=== PATIENT | female | born 1950 | race Caucasian/White ===

== ENCOUNTER 2018-01-05 06:05 | Inpatient (IN) | payer MEDICARE, OTHER ==
[2018-01-05 07:15] LABS: ADD MAN DIFF? NO
[2018-01-05 07:19] LABS: BASOPHIL # 0.1 10^3/ul (0.0-0.1); BASOPHILS % 0.9 % (0.0-2.0); EOSINOPHILS # 0.1 10^3/ul (0.0-0.5); EOSINOPHILS % 2.2 % (0.0-7.0); HEMATOCRIT 38.2 % (37.0-47.0); HEMOGLOBIN 12.6 g/dl (12.0-16.0); LYMPHOCYTES # 1.3 10^3/ul (0.8-2.9); LYMPHOCYTES % 23.2 % (15.0-51.0); MEAN PLATELET VOLUME 10.9 fl (7.4-10.4); MONOCYTE # 0.5 10^3/ul (0.3-0.9); MONOCYTES % 9.1 % (0.0-11.0); NEUTROPHIL # 3.6 10^3/ul (1.6-7.5); NEUTROPHILS % 64.4 % (39.0-77.0); PLATELET COUNT 277 10^3/UL (140-415); RED CELL DISTRIBUTION WIDTH 12.5 % (11.5-14.5)
[2018-01-05 07:19] LABS: WHITE BLOOD COUNT 5.5 10^3/ul (4.8-10.8)
[2018-01-05 07:25] LABS: INR 1.08; PROTIME 14.1 Sec (11.9-14.9); PT RATIO 1.1
[2018-01-05 07:26] LABS: PARTIAL THROMBOPLASTIN TIME 29.4 Sec (25.0-35.0)
[2018-01-05 07:31] LABS: ALANINE AMINOTRANSFERASE 29 IU/L (13-69); ALBUMIN 4.1 g/dl (3.3-4.9); ALBUMIN/GLOBULIN RATIO 1.17; ALKALINE PHOSPHATASE 107 IU/L (42-121); ANION GAP 9 (8-16); ASPARTATE AMINO TRANSFERASE 24 IU/L (15-46); BILIRUBIN,INDIRECT 0.6 mg/dl (0-1.1); BILIRUBIN,TOTAL 0.6 mg/dl (0.2-1.3); CARBON DIOXIDE 27 mmol/L (21-31); CHLORIDE 108 mmol/L (97-110); GLUCOSE 183 mg/dl (70-220); TOTAL PROTEIN 7.6 g/dl (6.1-8.1)
[2018-01-05 07:34] LABS: BLOOD UREA NITROGEN 14 mg/dl (7-20); CALCIUM 9.2 mg/dl (8.4-10.2); CREATININE 0.58 mg/dl (0.44-1.00); POTASSIUM 4.6 mmol/L (3.5-5.1); SODIUM 139 mmol/L (135-144)
[2018-01-05] MEDS ORDERED: LIDOCAINE 1% (MDV) 20 ML INJ (07:34)
[2018-01-05] MEDS ORDERED: FENTAnyl 50 MCG/ML VIAL (07:34)
[2018-01-05] MEDS ORDERED: IODIXANOL LOCM 100 ML BTL (07:34)
[2018-01-05] MEDS ORDERED: HEPARIN 1000 UNITS/ML 10 ML INJ (07:34)
[2018-01-05] MEDS ORDERED: VERAPAMIL 5 MG INJ (07:35)
[2018-01-05] MEDS ORDERED: NITROGLYCERIN (IC) 100 MCG/ML INJ (07:35)
[2018-01-05] MEDS ORDERED: MIDAZOLAM 1 MG/ML 2 ML INJ (07:35)
[2018-01-05] MEDS: METOPROLOL (XL) 25 MG TAB PO (09:00)
[2018-01-05] MEDS: ISOSORBIDE MONONITRATE(SR)30 MG TAB PO (09:00)
[2018-01-05] MEDS: ASPIRIN 81 MG TAB NGT (11:00)
[2018-01-05] MEDS: SOD CHLORIDE 0.9% 1,000 ML IV (11:39)
[2018-01-05] MEDS: PANTOPRAZOLE (EC) 40 MG TAB PO (16:47)
[2018-01-05] MEDS: ATORVASTATIN 80 MG TAB PO (21:26)
[2018-01-05] MEDS: CEFAZOLIN 2 GM/50 ML (PMX) 50 ML IVPB (21:53)
[2018-01-06] MEDS: PANTOPRAZOLE (EC) 40 MG TAB PO (06:00)
[2018-01-06] MEDS: METOPROLOL (XL) 25 MG TAB PO (09:29)
[2018-01-06] MEDS: ISOSORBIDE MONONITRATE(SR)30 MG TAB PO (09:30)
[2018-01-06] MEDS: ASPIRIN 81 MG TAB NGT (09:30)
[2018-01-06 09:33] LABS: ADD MAN DIFF? NO
[2018-01-06 09:44] LABS: BASOPHILS % 0.6 % (0.0-2.0); EOSINOPHILS # 0.1 10^3/ul (0.0-0.5); EOSINOPHILS % 1.5 % (0.0-7.0); HEMATOCRIT 34.9 % (37.0-47.0); HEMOGLOBIN 11.4 g/dl (12.0-16.0); LYMPHOCYTES # 1.1 10^3/ul (0.8-2.9); LYMPHOCYTES % 24.1 % (15.0-51.0); MEAN CORPUSCULAR HEMOGLOBIN 30.2 pg (29.0-33.0); MEAN CORPUSCULAR HGB CONC 32.7 g/dl (32.0-37.0); MEAN CORPUSCULAR VOLUME 92.3 fl (82.0-101.0); MONOCYTE # 0.4 10^3/ul (0.3-0.9); MONOCYTES % 8.5 % (0.0-11.0); NEUTROPHIL # 3.1 10^3/ul (1.6-7.5); NEUTROPHILS % 65.1 % (39.0-77.0); PLATELET COUNT 247 10^3/UL (140-415); RED BLOOD COUNT 3.78 10^6/ul (4.20-5.40); RED CELL DISTRIBUTION WIDTH 12.5 % (11.5-14.5)
[2018-01-06 09:44] LABS: WHITE BLOOD COUNT 4.7 10^3/ul (4.8-10.8)
[2018-01-06 10:08] LABS: ANION GAP 9 (8-16); BLOOD UREA NITROGEN 12 mg/dl (7-20); CALCIUM 8.8 mg/dl (8.4-10.2); CARBON DIOXIDE 27 mmol/L (21-31); CHLORIDE 108 mmol/L (97-110); CREATININE 0.67 mg/dl (0.44-1.00); GLUCOSE 162 mg/dl (70-220); PHOSPHORUS 3.7 mg/dl (2.5-4.9); POTASSIUM 4.2 mmol/L (3.5-5.1); SODIUM 140 mmol/L (135-144)
[2018-01-06] MEDS: ATORVASTATIN 80 MG TAB PO (20:21)
[2018-01-07] MEDS: PANTOPRAZOLE (EC) 40 MG TAB PO (06:06)
[2018-01-07] MEDS ORDERED: POTASSIUM CHLORIDE 20 MEQ/SW 50 ML IVPB (07:00)
[2018-01-07] MEDS ORDERED: NITROGLYCERIN 50 MG/D5W 250 ML BTL (07:00)
[2018-01-07] MEDS ORDERED: DOPamine-D5W 1.6 MG/ML 250 ML (07:00)
[2018-01-07] MEDS: ASPIRIN 81 MG TAB PO (08:23)
[2018-01-07] MEDS: ISOSORBIDE MONONITRATE(SR)30 MG TAB PO (08:23)
[2018-01-07] MEDS: METOPROLOL (XL) 25 MG TAB PO (08:24)
[2018-01-07] MEDS ORDERED: THROMBIN 5000 UNIT VIAL (11:06)
[2018-01-07] MEDS ORDERED: GELATIN SIZE 100 SPONGE (11:06)
[2018-01-07] MEDS ORDERED: HEPARIN 1000 UNITS/ML 10 ML INJ ×4 (11:06→15:15)
[2018-01-07] MEDS ORDERED: MIDAZOLAM 5 ML ×2 (12:43→14:49)
[2018-01-07] MEDS ORDERED: PHENYLephrine (100 MCG/ML) 5ML SYG ×2 (12:48→16:06)
[2018-01-07] MEDS ORDERED: LIDOCAINE 100 MG SYRINGE (12:54)
[2018-01-07] MEDS ORDERED: MAGNESIUM SULFATE (MG) 50% 10 ML INJ (12:54)
[2018-01-07] MEDS ORDERED: POTASSIUM CHLORIDE 40 MEQ INJ (12:54)
[2018-01-07] MEDS ORDERED: ALBUMIN HUMAN 25% 100 ML (12:55)
[2018-01-07] MEDS ORDERED: PHENYLephrine 10 MG INJ (12:55)
[2018-01-07] MEDS ORDERED: MANNITOL 20% 250 ML IV (12:55)
[2018-01-07] MEDS ORDERED: NA BICARBONATE 8.4% 50 ML SYG (12:55)
[2018-01-07] MEDS ORDERED: CA CHLORIDE 10% 10 ML SYRINGE (12:56)
[2018-01-07] MEDS: INSULIN HUMAN REGULAR 100 UNIT in SOD CHLORIDE 0.9% 99 ML IVPB (13:00)
[2018-01-07] MEDS: MILRINONE LACTATE 2 MG in SOD CHLORIDE 0.9% 50 ML IV (13:00)
[2018-01-07] MEDS: PHENYLephrine 20MG IN 250 ML 250 ML IV (13:00)
[2018-01-07] MEDS ORDERED: TRANEXAMIC ACID 1,000 MG/10 ML VIAL (13:00)
[2018-01-07] MEDS: NORepinephrine 8MG/250 ML (PMX 250 ML IV (13:00)
[2018-01-07] MEDS: HEPARIN (10000 UNITS/ML) 10,000 UNIT, MILRINONE LACTATE 10 MG in SOD CHLORIDE 0.9% 1,00... SC (13:00)
[2018-01-07] MEDS ORDERED: CEFAZOLIN 1 GM INJ ×2 (13:39→16:06)
[2018-01-07] MEDS ORDERED: FUROSEMIDE 20 MG INJ (14:12)
[2018-01-07] MEDS: HEPARIN 1000 UNITS/ML 10 ML INJ (14:43)
[2018-01-07] MEDS: PAPAVERINE 60 MG INJ (14:43)
[2018-01-07] MEDS: VANCOMYCIN 1 GM INJ (14:44)
[2018-01-07] MEDS ORDERED: ALBUMIN HUMAN 5% 250 ML (15:50)
[2018-01-07] MEDS ORDERED: PROTAMINE 250 MG INJ ×2 (16:06→17:03)
[2018-01-07] MEDS: ASPIRIN 600 MG SUPP PR (17:00)
[2018-01-07] MEDS ORDERED: ROCURONIUM 50 MG INJ (17:01)
[2018-01-07] MEDS ORDERED: LIDOCAINE 2% (SDV) 5 ML INJ (17:01)
[2018-01-07] MEDS ORDERED: ETOMIDATE 20 MG INJ (17:01)
[2018-01-07] MEDS ORDERED: MAGNESIUM SULFATE 1 GM/D5W 100 ML IVPB (17:30)
[2018-01-07] MEDS ORDERED: ACETAMINOPHEN 325 MG TAB PO (17:30)
[2018-01-07] MEDS: CEFAZOLIN 1 GM/50 ML (PMX) 50 ML IVPB (17:30)
[2018-01-07] MEDS ORDERED: HYDROmorphONE 0.5 MG/0.5 ML SYG IV (17:30)
[2018-01-07] MEDS ORDERED: KETOROLAC 15 MG INJ IV (17:30)
[2018-01-07] MEDS ORDERED: NITROGLYCERIN 50 MG/D5W (PMX) 250 ML IV ×2 (17:30→18:00)
[2018-01-07] MEDS ORDERED: DEXTROSE 50% 50 ML SYRINGE IV ×2 (17:30)
[2018-01-07] MEDS: EPINEPHrine 4 MG in DEXTROSE 5% 246 ML IV (17:46)
[2018-01-07] MEDS: ACCU-CHEK XX ×7 (17:47→23:30)
[2018-01-07] MEDS: DOPamine-D5W 1.6 MG/ML 250 ML IV (17:57)
[2018-01-07] MEDS ORDERED: DOPamine-D5W 1.6 MG/ML 250 ML IV (18:00)
[2018-01-07 18:23] LABS: ADD MAN DIFF? NO
[2018-01-07 18:24] LABS: WHITE BLOOD COUNT 13.3 10^3/ul (4.8-10.8)
[2018-01-07 18:24] LABS: BASOPHILS % 0.2 % (0.0-2.0); EOSINOPHILS # 0.1 10^3/ul (0.0-0.5); EOSINOPHILS % 0.9 % (0.0-7.0); HEMOGLOBIN 10.7 g/dl (12.0-16.0); LYMPHOCYTES # 1.7 10^3/ul (0.8-2.9); LYMPHOCYTES % 12.8 % (15.0-51.0); MEAN CORPUSCULAR HEMOGLOBIN 30.1 pg (29.0-33.0); MEAN CORPUSCULAR HGB CONC 33.4 g/dl (32.0-37.0); MEAN CORPUSCULAR VOLUME 90.1 fl (82.0-101.0); MEAN PLATELET VOLUME 10.5 fl (7.4-10.4); MONOCYTE # 0.5 10^3/ul (0.3-0.9); MONOCYTES % 3.5 % (0.0-11.0); NEUTROPHILS % 82.1 % (39.0-77.0); PLATELET COUNT 167 10^3/UL (140-415); RED BLOOD COUNT 3.55 10^6/ul (4.20-5.40); RED CELL DISTRIBUTION WIDTH 12.4 % (11.5-14.5)
[2018-01-07 18:32] LABS: AADO2 Arterial 310.8 mmHg (7.0-24.0); Arterial Base Excess 0.9 mmol/L (-3.0-3); Arterial COHb 0.3 % (0.0-3.0); Arterial Fraction of Oxyhgb 97.4 % (93.0-99.0); Arterial HCO3 27.1 mmol/L (22.0-26.0); Arterial MetHb 0.3 % (0.0-1.5); Arterial Total Hemglobin 12.1 g/dl (12.0-18.0); Arterial pCO2 50.2 mmhg (35-45); MODE VENT - AC; Site A-Line
[2018-01-07 18:43] LABS: ANION GAP 12 (8-16); BLOOD UREA NITROGEN 9 mg/dl (7-20); CALCIUM 8.4 mg/dl (8.4-10.2); CARBON DIOXIDE 29 mmol/L (21-31); CHLORIDE 105 mmol/L (97-110); CREATININE 0.57 mg/dl (0.44-1.00); GLUCOSE 136 mg/dl (70-220); MAGNESIUM 2.9 mg/dl (1.7-2.5); POTASSIUM 3.3 mmol/L (3.5-5.1); SODIUM 143 mmol/L (135-144)
[2018-01-07 19:08] LABS: PROTIME 20.3 Sec (11.9-14.9); PT RATIO 1.6
[2018-01-07] MEDS: POTASSIUM CHLORIDE 50 ML IVPB ×3 (19:12→21:45)
[2018-01-07 19:24] LABS: PARTIAL THROMBOPLASTIN TIME 31.7 Sec (25.0-35.0)
[2018-01-07] MEDS: POTASSIUM CHLORIDE 40 MEQ, CALCIUM CHLORIDE 10% 1 GM in DEXTROSE 5%-0.225% NACL 1,000 ML IV (19:28)
[2018-01-07] MEDS: INSULIN HUMAN REGULAR 100 UNIT in SOD CHLORIDE 0.9% 99 ML IV (20:14)
[2018-01-07] MEDS: FAMOTIDINE 20 MG INJ IV (20:51)
[2018-01-08 00:29] LABS: ADD MAN DIFF? NO
[2018-01-08 00:33] LABS: WHITE BLOOD COUNT 15.6 10^3/ul (4.8-10.8)
[2018-01-08 00:33] LABS: BASOPHIL # 0.1 10^3/ul (0.0-0.1); BASOPHILS % 0.3 % (0.0-2.0); EOSINOPHILS % 0.1 % (0.0-7.0); HEMATOCRIT 30.8 % (37.0-47.0); HEMOGLOBIN 10.2 g/dl (12.0-16.0); LYMPHOCYTES # 1.1 10^3/ul (0.8-2.9); LYMPHOCYTES % 6.8 % (15.0-51.0); MEAN CORPUSCULAR HEMOGLOBIN 30.4 pg (29.0-33.0); MEAN CORPUSCULAR HGB CONC 33.1 g/dl (32.0-37.0); MEAN CORPUSCULAR VOLUME 91.7 fl (82.0-101.0); MEAN PLATELET VOLUME 11.3 fl (7.4-10.4); MONOCYTE # 1.1 10^3/ul (0.3-0.9); NEUTROPHIL # 13.3 10^3/ul (1.6-7.5); NEUTROPHILS % 85.1 % (39.0-77.0); PLATELET COUNT 172 10^3/UL (140-415); RED BLOOD COUNT 3.36 10^6/ul (4.20-5.40); RED CELL DISTRIBUTION WIDTH 12.4 % (11.5-14.5)
[2018-01-08 00:48] LABS: ANION GAP 9 (8-16); BLOOD UREA NITROGEN 7 mg/dl (7-20); CALCIUM 7.7 mg/dl (8.4-10.2); CARBON DIOXIDE 25 mmol/L (21-31); CHLORIDE 112 mmol/L (97-110); CREATININE 0.55 mg/dl (0.44-1.00); GLUCOSE 124 mg/dl (70-220); MAGNESIUM 2.1 mg/dl (1.7-2.5); POTASSIUM 3.5 mmol/L (3.5-5.1); SODIUM 142 mmol/L (135-144)
[2018-01-08] MEDS: ACCU-CHEK XX ×23 (01:11→22:41)
[2018-01-08] MEDS: CEFAZOLIN 1 GM/50 ML (PMX) 50 ML IVPB ×2 (01:15→08:54)
[2018-01-08 01:17] LABS: AADO2 Arterial 215.1 mmHg (7.0-24.0); Arterial Base Excess -0.4 mmol/L (-3.0-3); Arterial Blood Gas Oxygen Sat 96.7 mmHG (95.0-98.0); Arterial COHb 0.3 % (0.0-3.0); Arterial Fraction of Oxyhgb 96.2 % (93.0-99.0); Arterial HCO3 24.7 mmol/L (22.0-26.0); Arterial MetHb 0.2 % (0.0-1.5); Arterial pCO2 42.2 mmhg (35-45); Blood Gas PS 7; MODE VENT - CPAP; Site A-Line
[2018-01-08] MEDS ORDERED: ALBUMIN HUMAN 5% 250 ML (01:40)
[2018-01-08] MEDS: ALBUMIN HUMAN 5% 250 ML IV (01:43)
[2018-01-08] MEDS: POTASSIUM CHLORIDE 50 ML IVPB ×3 (04:16→06:10)
[2018-01-08 04:29] LABS: AADO2 Arterial 99.9 mmHg (7.0-24.0); Arterial Base Excess -0.6 mmol/L (-3.0-3); Arterial Blood Gas Oxygen Sat 92.1 mmHG (95.0-98.0); Arterial COHb 0.3 % (0.0-3.0); Arterial Fraction of Oxyhgb 91.7 % (93.0-99.0); Arterial HCO3 24.5 mmol/L (22.0-26.0); Arterial MetHb 0.1 % (0.0-1.5); Arterial Total Hemglobin 10.2 g/dl (12.0-18.0); Arterial pCO2 41.8 mmhg (35-45); MODE NASAL CANNULA; Site A-Line
[2018-01-08] MEDS: DOPamine-D5W 1.6 MG/ML 250 ML IV (05:27)
[2018-01-08 05:47] LABS: ADD MAN DIFF? NO
[2018-01-08 05:51] LABS: BASOPHIL # 0.1 10^3/ul (0.0-0.1); BASOPHILS % 0.4 % (0.0-2.0); EOSINOPHILS % 0.2 % (0.0-7.0); HEMOGLOBIN 9.2 g/dl (12.0-16.0); LYMPHOCYTES # 0.7 10^3/ul (0.8-2.9); LYMPHOCYTES % 6.1 % (15.0-51.0); MEAN CORPUSCULAR HEMOGLOBIN 30.2 pg (29.0-33.0); MEAN CORPUSCULAR HGB CONC 32.9 g/dl (32.0-37.0); MEAN CORPUSCULAR VOLUME 91.8 fl (82.0-101.0); MEAN PLATELET VOLUME 11.4 fl (7.4-10.4); MONOCYTES % 7.9 % (0.0-11.0); NEUTROPHIL # 10.2 10^3/ul (1.6-7.5); NEUTROPHILS % 84.8 % (39.0-77.0); PLATELET COUNT 160 10^3/UL (140-415); RED BLOOD COUNT 3.05 10^6/ul (4.20-5.40); RED CELL DISTRIBUTION WIDTH 12.5 % (11.5-14.5)
[2018-01-08 05:51] LABS: WHITE BLOOD COUNT 12.1 10^3/ul (4.8-10.8)
[2018-01-08 06:09] LABS: INR 1.53; PROTIME 18.7 Sec (11.9-14.9); PT RATIO 1.5
[2018-01-08 06:10] LABS: PARTIAL THROMBOPLASTIN TIME 47.9 Sec (25.0-35.0)
[2018-01-08 06:15] LABS: ANION GAP 9 (8-16); BLOOD UREA NITROGEN 7 mg/dl (7-20); CARBON DIOXIDE 26 mmol/L (21-31); CHLORIDE 109 mmol/L (97-110); CREATININE 0.55 mg/dl (0.44-1.00); GLUCOSE 159 mg/dl (70-220); MAGNESIUM 1.8 mg/dl (1.7-2.5); PHOSPHORUS 2.2 mg/dl (2.5-4.9); POTASSIUM 3.6 mmol/L (3.5-5.1); SODIUM 140 mmol/L (135-144)
[2018-01-08] MEDS: HYDROmorphONE 0.5 MG/0.5 ML SYG IV (07:30)
[2018-01-08] MEDS: FAMOTIDINE 20 MG INJ IV ×2 (08:54→20:54)
[2018-01-08] MEDS: ASPIRIN 325 MG TAB PO (08:54)
[2018-01-08] MEDS: ONDANSETRON 4 MG INJ IV (08:58)
[2018-01-08] MEDS: ENOXAPARIN 40 MG/0.4 ML SYG SC (08:58)
[2018-01-08] MEDS: POTASSIUM PHOSPHATE 20 MEQ in SOD CHLORIDE 0.9% 250 ML IVPB (09:44)
[2018-01-08] MEDS: SOD CHLORIDE 0.9% 500 ML IV (10:08)
[2018-01-08] MEDS: NORepinephrine 8MG/250 ML (PMX 250 ML IV (10:08)
[2018-01-08] MEDS: POTASSIUM CHLORIDE 40 MEQ, CALCIUM CHLORIDE 10% 1 GM in DEXTROSE 5%-0.225% NACL 1,000 ML IV (11:09)
[2018-01-08 16:59] LABS: HEMATOCRIT 25.7 % (37.0-47.0)
[2018-01-08 17:15] LABS: POTASSIUM 4.9 mmol/L (3.5-5.1)
[2018-01-08] MEDS: ATORVASTATIN 80 MG TAB PO (20:54)
[2018-01-08] MEDS: OXYCODONE/ACETAMINOPHEN (5/325) TAB PO (20:56)
[2018-01-08] MEDS ORDERED: ATORVASTATIN 40 MG TAB PO (21:00)
[2018-01-09] MEDS: ACCU-CHEK XX ×8 (00:18→06:53)
[2018-01-09] MEDS: POTASSIUM CHLORIDE 40 MEQ, CALCIUM CHLORIDE 10% 1 GM in DEXTROSE 5%-0.225% NACL 1,000 ML IV (04:19)
[2018-01-09 05:07] LABS: ADD MAN DIFF? NO
[2018-01-09 05:08] LABS: BASOPHILS % 0.1 % (0.0-2.0); EOSINOPHILS % 0.4 % (0.0-7.0); HEMATOCRIT 23.2 % (37.0-47.0); HEMOGLOBIN 7.6 g/dl (12.0-16.0); LYMPHOCYTES % 11.2 % (15.0-51.0); MEAN CORPUSCULAR HEMOGLOBIN 30.4 pg (29.0-33.0); MEAN CORPUSCULAR HGB CONC 32.8 g/dl (32.0-37.0); MEAN CORPUSCULAR VOLUME 92.8 fl (82.0-101.0); MEAN PLATELET VOLUME 11.5 fl (7.4-10.4); MONOCYTE # 0.7 10^3/ul (0.3-0.9); MONOCYTES % 7.6 % (0.0-11.0); NEUTROPHIL # 7.5 10^3/ul (1.6-7.5); NEUTROPHILS % 80.5 % (39.0-77.0); PLATELET COUNT 139 10^3/UL (140-415); RED CELL DISTRIBUTION WIDTH 12.6 % (11.5-14.5)
[2018-01-09 05:08] LABS: WHITE BLOOD COUNT 9.3 10^3/ul (4.8-10.8)
[2018-01-09 05:21] LABS: POSITIVE DIFF @See below
[2018-01-09 05:48] LABS: ANION GAP 6 (8-16); BLOOD UREA NITROGEN 9 mg/dl (7-20); CALCIUM 8.7 mg/dl (8.4-10.2); CARBON DIOXIDE 25 mmol/L (21-31); CHLORIDE 109 mmol/L (97-110); CREATININE 0.62 mg/dl (0.44-1.00); GLUCOSE 133 mg/dl (70-220); MAGNESIUM 1.8 mg/dl (1.7-2.5); PHOSPHORUS 3.1 mg/dl (2.5-4.9); POTASSIUM 4.9 mmol/L (3.5-5.1); SODIUM 135 mmol/L (135-144)
[2018-01-09] MEDS: METOPROLOL (XL) 25 MG TAB PO (08:54)
[2018-01-09] MEDS: FAMOTIDINE 20 MG TAB PO ×2 (08:54→21:21)
[2018-01-09] MEDS: ASPIRIN 325 MG TAB PO (08:54)
[2018-01-09] MEDS ORDERED: METOPROLOL 25 MG TAB PO (09:00)
[2018-01-09] MEDS: ENOXAPARIN 40 MG/0.4 ML SYG SC (09:05)
[2018-01-09] MEDS: OXYCODONE/ACETAMINOPHEN (5/325) TAB PO (09:06)
[2018-01-09 14:22] LABS: HEMATOCRIT 23.3 % (37.0-47.0); HEMOGLOBIN 7.6 g/dl (12.0-16.0)
[2018-01-09] MEDS: ATORVASTATIN 80 MG TAB PO (21:21)
[2018-01-10 06:42] LABS: ADD MAN DIFF? NO
[2018-01-10 06:50] LABS: ABNORMAL IP MESSAGE 1; BASOPHILS % 0.3 % (0.0-2.0); EOSINOPHILS % 0.6 % (0.0-7.0); HEMATOCRIT 20.5 % (37.0-47.0); LYMPHOCYTES # 0.7 10^3/ul (0.8-2.9); LYMPHOCYTES % 10.3 % (15.0-51.0); MEAN CORPUSCULAR HEMOGLOBIN 31.2 pg (29.0-33.0); MEAN CORPUSCULAR HGB CONC 33.7 g/dl (32.0-37.0); MEAN CORPUSCULAR VOLUME 92.8 fl (82.0-101.0); MEAN PLATELET VOLUME 11.1 fl (7.4-10.4); MONOCYTE # 0.5 10^3/ul (0.3-0.9); MONOCYTES % 7.3 % (0.0-11.0); NEUTROPHIL # 5.7 10^3/ul (1.6-7.5); NEUTROPHILS % 80.8 % (39.0-77.0); PLATELET COUNT 144 10^3/UL (140-415); RED BLOOD COUNT 2.21 10^6/ul (4.20-5.40); RED CELL DISTRIBUTION WIDTH 12.6 % (11.5-14.5)
[2018-01-10] MEDS: OXYCODONE/ACETAMINOPHEN (5/325) TAB PO ×2 (07:01→20:27)
[2018-01-10 07:02] LABS: POSITIVE DIFF @See below
[2018-01-10 07:04] LABS: HEMOGLOBIN 6.9 g/dl (12.0-16.0); PATH REVIEW? YES
[2018-01-10 07:16] LABS: ANION GAP 9 (8-16); BLOOD UREA NITROGEN 8 mg/dl (7-20); CALCIUM 8.2 mg/dl (8.4-10.2); CARBON DIOXIDE 25 mmol/L (21-31); CHLORIDE 104 mmol/L (97-110); CREATININE 0.72 mg/dl (0.44-1.00); GLUCOSE 212 mg/dl (70-220); MAGNESIUM 1.9 mg/dl (1.7-2.5); PHOSPHORUS 3.1 mg/dl (2.5-4.9); POTASSIUM 4.2 mmol/L (3.5-5.1); SODIUM 134 mmol/L (135-144)
[2018-01-10] MEDS: SOD CHLORIDE 0.9% 250 ML IV* (07:20)
[2018-01-10] MEDS: METOPROLOL (XL) 25 MG TAB PO (08:10)
[2018-01-10] MEDS: ASPIRIN 325 MG TAB PO (08:18)
[2018-01-10] MEDS: FAMOTIDINE 20 MG TAB PO ×2 (08:19→20:19)
[2018-01-10 08:49] LABS: ANISOCYTOSIS 1+ (0-0); BAND NEUTROPHILS #M 0.4 10^3/ul (0.0-0.6); BAND NEUTROPHILS % (M) 7 % (0-4); EOSINOPHILS % (M) 1 % (0-7); LYMPHOCYTES #M 0.6 10^3/ul (0.8-2.9); LYMPHOCYTES % (M) 9 % (15-51); METAMYELOCYTES %M 1 % (0-0); MONOCYTE #M 0.2 10^3/ul (0.3-0.9); MONOCYTES % (M) 4 % (0-11); OVALOCYTES 1+ (0-0); PLATELET ESTIMATE NORMAL; POLYCHROMASIA 1+ (0-0); SEG NEUT #M 5.5 10^3/ul (1.6-7.5); SEGMENTED NEUTROPHILS (M) % 78 % (39-77); SMUDGE%M 7 % (0-0)
[2018-01-10] MEDS ORDERED: ENOXAPARIN 40 MG/0.4 ML SYG SC (09:00)
[2018-01-10] MEDS: FUROSEMIDE 20 MG INJ IV (11:34)
[2018-01-10 12:03] LABS: IMMEDIATE SPIN CROSSMATCH 1 1
[2018-01-10 19:34] LABS: HEMATOCRIT 26.5 % (37.0-47.0); HEMOGLOBIN 8.8 g/dl (12.0-16.0)
[2018-01-10] MEDS: ATORVASTATIN 80 MG TAB PO (20:19)
[2018-01-11] MEDS: ACETAMINOPHEN 325 MG TAB PO (01:39)
[2018-01-11 06:45] LABS: ADD MAN DIFF? NO
[2018-01-11 06:48] LABS: WHITE BLOOD COUNT 6.4 10^3/ul (4.8-10.8)
[2018-01-11 06:48] LABS: BASOPHILS % 0.3 % (0.0-2.0); EOSINOPHILS # 0.1 10^3/ul (0.0-0.5); EOSINOPHILS % 2.2 % (0.0-7.0); HEMATOCRIT 25.7 % (37.0-47.0); LYMPHOCYTES # 0.9 10^3/ul (0.8-2.9); MEAN CORPUSCULAR HGB CONC 33.1 g/dl (32.0-37.0); MEAN CORPUSCULAR VOLUME 90.8 fl (82.0-101.0); MEAN PLATELET VOLUME 10.8 fl (7.4-10.4); MONOCYTE # 0.5 10^3/ul (0.3-0.9); MONOCYTES % 7.1 % (0.0-11.0); NEUTROPHIL # 4.8 10^3/ul (1.6-7.5); NEUTROPHILS % 75.8 % (39.0-77.0); PLATELET COUNT 174 10^3/UL (140-415); RED BLOOD COUNT 2.83 10^6/ul (4.20-5.40); RED CELL DISTRIBUTION WIDTH 13.2 % (11.5-14.5)
[2018-01-11 06:54] LABS: HEMOGLOBIN 8.5 g/dl (12.0-16.0)
[2018-01-11 07:20] LABS: ANION GAP 6 (8-16); BLOOD UREA NITROGEN 7 mg/dl (7-20); CALCIUM 8.3 mg/dl (8.4-10.2); CARBON DIOXIDE 29 mmol/L (21-31); CHLORIDE 104 mmol/L (97-110); CREATININE 0.63 mg/dl (0.44-1.00); GLUCOSE 147 mg/dl (70-220); MAGNESIUM 2.1 mg/dl (1.7-2.5); POTASSIUM 4.3 mmol/L (3.5-5.1); SODIUM 135 mmol/L (135-144)
[2018-01-11] MEDS: FAMOTIDINE 20 MG TAB PO ×2 (08:34→20:35)
[2018-01-11] MEDS: METOPROLOL (XL) 25 MG TAB PO (08:34)
[2018-01-11] MEDS: ASPIRIN 325 MG TAB PO (08:34)
[2018-01-11] MEDS: FUROSEMIDE 40 MG INJ IV (15:29)
[2018-01-11] MEDS: ATORVASTATIN 80 MG TAB PO (20:34)
[2018-01-11] MEDS: OXYCODONE/ACETAMINOPHEN (5/325) TAB PO (20:35)
[2018-01-12 06:51] LABS: ANION GAP 9 (8-16); BLOOD UREA NITROGEN 6 mg/dl (7-20); CALCIUM 8.2 mg/dl (8.4-10.2); CARBON DIOXIDE 30 mmol/L (21-31); CHLORIDE 103 mmol/L (97-110); CREATININE 0.62 mg/dl (0.44-1.00); GLUCOSE 174 mg/dl (70-220); POTASSIUM 3.5 mmol/L (3.5-5.1); SODIUM 138 mmol/L (135-144)
[2018-01-12] MEDS: ASPIRIN 325 MG TAB PO (08:12)
[2018-01-12] MEDS: FAMOTIDINE 20 MG TAB PO (08:12)
[2018-01-12] MEDS: METOPROLOL (XL) 25 MG TAB PO (08:13)
[2018-01-12] MEDS: POTASSIUM CHLORIDE 20 MEQ POWDER FOR ORAL SOLN PO (12:31)
== END 2018-01-12 19:40 | disposition home health service (06) | DRG 233 ==
LOC: SDS 06:05 → ICU 01-07 12:03 → TEL 01-09 11:25 → SDS 06:05 → REC 08:39 → TEL 12:20 → ICU 01-07 17:38
PROC: 4A023N7 Measurement of Cardiac Sampling and Pressure, Left Heart, Percutaneous Approach (ICD-10-PCS; principal; 2018-01-05 07:23)
PROC: 02100Z9 Bypass Coronary Artery, One Artery from Left Internal Mammary, Open Approach (ICD-10-PCS; 2018-01-05 07:23)
PROC: 02100Z8 Bypass Coronary Artery, One Artery from Right Internal Mammary, Open Approach (ICD-10-PCS; 2018-01-05 07:23)
PROC: 06BP4ZZ Excision of Right Saphenous Vein, Percutaneous Endoscopic Approach (ICD-10-PCS; 2018-01-05 07:23)
PROC: 4A023N7 Measurement of Cardiac Sampling and Pressure, Left Heart, Percutaneous Approach (ICD-10-PCS; 2018-01-05 07:23)
PROC: B211YZZ Fluoroscopy of Multiple Coronary Arteries using Other Contrast (ICD-10-PCS; 2018-01-05 07:23)
PROC: B215YZZ Fluoroscopy of Left Heart using Other Contrast (ICD-10-PCS; 2018-01-05 07:23)
PROC: 5A1221Z Performance of Cardiac Output, Continuous (ICD-10-PCS; 2018-01-05 07:23)
PROC: 0BH17EZ Insertion of Endotracheal Airway into Trachea, Via Natural or Artificial Opening (ICD-10-PCS; 2018-01-05 07:23)
PROC: 30233N1 Transfusion of Nonautologous Red Blood Cells into Peripheral Vein, Percutaneous Approach (ICD-10-PCS; 2018-01-05 07:23)
DX: I25.110 Atherosclerotic heart disease of native coronary artery with unstable angina pectoris (principal); I50.31 Acute diastolic (congestive) heart failure; T85.638A Leakage of other specified internal prosthetic devices, implants and grafts, initial encounter; R65.10 Systemic inflammatory response syndrome (SIRS) of non-infectious origin without acute organ dysfunction; J93.9 Pneumothorax, unspecified; I11.0 Hypertensive heart disease with heart failure; I25.82 Chronic total occlusion of coronary artery; E78.5 Hyperlipidemia, unspecified; D64.9 Anemia, unspecified; E83.9 Disorder of mineral metabolism, unspecified; R53.81 Other malaise; D72.819 Decreased white blood cell count, unspecified; Y84.8 Other medical procedures as the cause of abnormal reaction of the patient, or of later complication, without mention of misadventure at the time of the procedure; Y92.238 Other place in hospital as the place of occurrence of the external cause
CPT/HCPCS: 31500; 36430; 36600; 71045; 80048; 80053; 82803; 82962; 83735; 84100; 84132; 85014; 85018; 85025; 85610; 85730; 86850; 86900; 86901; 86920; 87081; 93005; 93312; 93325; 93458; 93880; 93970; 94002; 94003; 94770; 97116; 97161; 97530